=== PATIENT | male | born 1970 | race Caucasian/White ===

== ENCOUNTER 2016-11-06 20:04 | Emergency (ER) | payer BC, OTHER ==
--- NOTE | 2016-11-06 20:31 | UC ---
Throat Pain/Nasal Benjamín HPI - HPI Summary HPI Summary: 46 yo male with about a three day hx of sore throat points to larynx when asked where it hurts has chronic hoarseness has issues with dyspepsia last night while sleeping had acid come up into his throat woke up and took tums no f/c - History of Current Complaint Chief Complaint: UCGeneralIllness Stated Complaint: THROAT COMPLAINT Time Seen by Provider: 11/06/16 20:09 Hx Obtained From: Patient Onset/Duration: Gradual Onset, Lasting Days Severity: Mild Pain Intensity: 4 Pain Scale Used: 0-10 Numeric Cough: None - Epiglottits Risk Factors Epiglottis Risk Factors: Negative - Allergies/Home Medications Allergies/Adverse Reactions: Allergies Allergy/AdvReac Type Severity Reaction Status Date / Time No Known Allergies Allergy Verified 11/06/16 20:17 Home Medications: Home Medications Atorvastatin* [Lipitor*] 40 mg PO DAILY 11/06/16 [History Confirmed 11/06/16] Clopidogrel Bisulfate [Plavix] 75 mg PO DAILY 11/06/16 [History Confirmed ] Metoprolol Tartrate TAB* [Lopressor TAB*] 25 mg PO DAILY 11/06/16 [History Confirmed 11/06/16] Ramipril CAP* [Altace CAP*] 10 mg PO DAILY 11/06/16 [History Confirmed 11/06/16] PMH/Surg Hx/FS Hx/Imm Hx Previously Healthy: Yes Endocrine History: Dyslipidemia Cardiovascular History: Cardiac Disease, Hypertension GI/ History: Gastroesophageal Reflux - Surgical History Surgical History: Yes Surgery Procedure, Year, and Place: CARDIAC STENTS - Family History Known Family History: Positive: Cardiac Disease, Hypertension - Social History Alcohol Use: Occasionally Substance Use Type: None Smoking Status (MU): Current Every Day Smoker Type: Cigarettes Amount Used/How Often: 1/2 PPD Length of Time of Smoking/Using Tobacco: 30+ Have You Smoked in the Last Year: Yes Review of Systems Constitutional: Negative Skin: Negative Eyes: Negative ENT: Sore Throat Respiratory: Negative Cardiovascular: Negative Gastrointestinal: Other - dyspepsia Genitourinary: Negative Motor: Negative Neurovascular: Negative Musculoskeletal: Negative Neurological: Negative Psychological: Negative Is Patient Immunocompromised?: No All Other Systems Reviewed And Are Negative: Yes Physical Exam Triage Information Reviewed: Yes Appearance: Well-Appearing, No Pain Distress, Well-Nourished Vital Signs: Initial Vital Signs Temp 98.3 F 11/06/16 20:08 Pulse 93 11/06/16 20:08 Resp 20 11/06/16 20:08 BP 148/88 11/06/16 20:08 Pulse Ox 98 11/06/16 20:08 Diagnostics - Laboratory Diagnostic Studies Completed/Ordered: STREP (-) Throat Pain/Nasal Course/Dx - Differential Dx/Diagnosis Provider Diagnoses: DYSPEPSIA. LARYNGEAL PAIN POSSIBLE DUE TO GERD Discharge - Discharge Plan Condition: Stable Disposition: HOME Prescriptions: Famotidine TAB* [Pepcid 20 MG TAB*] 20 mg PO DAILY #14 tab Patient Education Materials: Gastroesophageal Reflux Disease (ED) Referrals: Pasquale Reagan MD [Primary Care Provider] - 4 Days Additional Instructions: MYLANTA 30 ML (2 TABLESPOONS) EVERY 2 HOURS WHILE AWAKE FOR 2-3 DAYS BE SURE TO SEE YOUR MD LATER THIS WEEK IF NOT IMPROVING YOU MAY NEED TO SEE AN ENT SO THEY CAN LOOK AT YOUR VOICE BOX WITH A SCOPE
== END 2016-11-06 20:53 | disposition home or self-care (01) ==
LOC: UCCORT 20:04
DX: R10.13 Epigastric pain (principal); E78.5 Hyperlipidemia, unspecified; I10 Essential (primary) hypertension; K21.9 Gastro-esophageal reflux disease without esophagitis; Z79.01 Long term (current) use of anticoagulants
CPT/HCPCS: 87651; 99202; G0463